=== PATIENT | female | born 1965 ===

== ENCOUNTER → 2017-11-08 | Outpatient (CLI) | payer OTHER ==
[~2017-11-08] VITALS: Ht 121.9 cm; Wt 68.0 kg
[~2017-11-08] MED LIST: ASPIR 8181 MG; LOSARTAN-HCTZ1 EAC1; PEPCID20 MG; TAMOXIFEN CITRA20 MG; TOPROL XL50 M1
== END | disposition home or self-care (01) ==
LOC: PPHC 12:23
DX: Z00.8 Encounter for other general examination (principal)